=== PATIENT | male | born 1940 | race Caucasian/White ===

== ENCOUNTER 2017-05-28 07:09 | Inpatient (IN) | payer OTHER, MEDICARE ==
[~2017-05-28] VITALS: Ht 172.7 cm; Wt 105.7 kg
[~2017-05-28 07:09] MED LIST: ACCUNEB SO1.25 MG/1 INH; AVODART0.5 MG PO; BYSTOLIC 5 MG5 M1 PO; CARDIZEM CD180 MG PO; CELEBREX 200 M200 M1 PO; FLECAINIDE ACET50 M1 PO; FLOMAX0.4 MG PO; SINEMET 25-1001 EAC1 PO; TEGRETOL XR400 MG PO; XARELTO20 MG PO
[2017-05-28 07:13] VITALS: BP 116/77
[2017-05-28 07:45] LABS: ANION GAP 6 mmol/L (7-16); BUN 18 mg/dL (7-18); CALCIUM 8.6 mg/dL (8.5-10.1); CHLORIDE 104 mmol/L (98-107); CO2 29 mmol/L (21-32); GLUCOSE 112 mg/dL (70-99); POTASSIUM 4.2 mmol/L (3.5-5.1); SODIUM 139 mmol/L (136-145)
[2017-05-28 07:50] LABS: APTT 35.5 Seconds (25.0-31.3); INR 1.3; MCH 33.5 pg (26.0-34.0); MPV 7.9 fl. (7.2-11.1); NUCLEATED RBCS 0 /100WBC; PROTIME 13.1 Seconds (9.20-11.50); WBC 10.4 thou/uL (4.0-11.0)
[2017-05-28 07:52] LABS: ABSOLUTE BASOPHILS 0.1 thou/uL (0.0-0.2); ABSOLUTE EOSINOPHILS 0.2 thou/uL (0.0-0.7); ABSOLUTE LYMPHOCYTES 1.8 thou/uL (0.8-5.3); ABSOLUTE MONOCYTES 0.9 thou/uL (0.0-1.2); ABSOLUTE NEUTROPHILS 7.5 thou/uL (1.6-8.1); BASOPHILS 0.7 %; EOSINOPHILS 1.6 %; HEMATOCRIT 42.3 % (42.0-52.0); HEMOGLOBIN 14.2 gm/dL (14.0-18.0); LYMPHOCYTES 17.2 %; MCHC 33.7 g/dL (28.0-37.0); MCV 99.6 fL (80.0-100.0); MONOCYTES 8.7 %; PLATELET COUNT* 182 thou/uL (150-400); POLYS 71.8 %; RBC 4.25 mil/uL (4.50-6.00); RDW-CV 13.8 % (10.5-14.5)
[2017-05-28 07:53] LABS: BE -3.1 mmol/L (-2 to +3); HCO3 20.9 mmol/L (22.0-26.0); PCO2 34.6 mmHg (35.0-45.0); PO2 72.4 mmHg (75.0-100.0); pH 7.399 (7.340-7.450)
[2017-05-28 07:55] LABS: ALBUMIN 3.6 g/dL (3.4-5.0); ALKALINE PHOSPHATASE 79 U/L (46-116); NT-PRO BRAIN NAT PEPTIDE 185 pg/mL (<300); SGOT 28 U/L (15-37); SGPT 17 U/L (30-65); TOTAL BILIRUBIN 0.5 mg/dL (<0.1-1.0); TOTAL PROTEIN 6.5 g/dL (6.4-8.2); TROPONIN-I LEVEL <0.06 ng/mL (<0.06)
[2017-05-28 09:37] VITALS: BP 105/68
[2017-05-28 10:00] VITALS: BP 118/73
[2017-05-28 11:59] VITALS: BP 118/66
--- NOTE | 2017-05-28 13:21 | EKG ---
[place] [address] ELECTROCARDIOGRAM REPORT Name: NIMESH BRAUN Room: [facility] ADM IN M.R.#: [id number] Admission: 05/28/17 Attend Phys: Benjamin Guzman MD Discharge: Date of : 40 Report #: [id number] THIS REPORT FOR: //name// [facility] ED Test Date: 2017-05-28 Test Time: 07:19:53 Pat Name: NIMESH BRAUN Department: Room: [facility] Gender: M Painter: [facility] : 1940 Requested By: Zahraa Le Order Number: [id number] MD: Roman Josue Measurements Intervals [place] Rate: 73 P: -38 OR: 347 QRS: 50 QRSD: 105 T: 37 QT: 367 QTc: 405 Interpretive Statements Sinus rhythm Prolonged [place] interval Borderline low voltage, extremity leads Compared to ECG 09/26/2005 07:25:46 No significant changes Electronically Signed On 05-28-2017 13:20:58 DINING CAR WAITER/WAITRESS by Roman Josue [email or web address] <ELECTRONICALLY SIGNED> By: Roman Josue MD, [facility] 05/28/17 1320 8 8 Roman Josue MD, [facility] /EPI
[2017-05-28 16:12] VITALS: BP 119/70
[2017-05-28 20:00] VITALS: BP 118/58
[2017-05-29 00:06] VITALS: BP 108/65
[2017-05-29 03:41] VITALS: BP 110/66
[2017-05-29 06:23] LABS: HEMATOCRIT 40.6 % (42.0-52.0); HEMOGLOBIN 13.5 gm/dL (14.0-18.0); MCH 33.3 pg (26.0-34.0); MCHC 33.1 g/dL (28.0-37.0); MCV 100.5 fL (80.0-100.0); MPV 7.9 fl. (7.2-11.1); NUCLEATED RBCS 0 /100WBC; PLATELET COUNT* 180 thou/uL (150-400); RBC 4.04 mil/uL (4.50-6.00); RDW-CV 13.8 % (10.5-14.5); WBC 10.9 thou/uL (4.0-11.0)
[2017-05-29 06:39] LABS: CREATININE 1.1 mg/dL (0.6-1.3); POTASSIUM 4.1 mmol/L (3.5-5.1)
[2017-05-29 07:33] LABS: ABSOLUTE LYMPHOCYTES 0.8 thou/uL (0.8-5.3); ABSOLUTE MONOCYTES 0.7 thou/uL (0.0-1.2); ABSOLUTE NEUTROPHILS 9.5 thou/uL (1.6-8.1); PLATELET ESTIMATE ADEQUATE
[2017-05-29 08:00] VITALS: BP 120/78
--- NOTE | 2017-05-29 09:08 | CON ---
[address] [address] CONSULTATION Name: NIMESH BRAUN Room: [place] [address] ADM IN M.R.#: [id number] Admission: 05/28/17 Attend Phys: Benjamin Guzman MD Discharge: Date of : 40 Report #: [id number] THIS REPORT FOR: //name// CC: Benjamin Ledesma INDICATION: Acute shortness of breath and possible heart failure. HISTORY OF PRESENT ILLNESS: The patient is a very pleasant 76-year-old who underwent direct current cardioversion last week to normal sinus rhythm. He presently is maintaining sinus rhythm. Post-cardioversion, he had some left lower posterior chest pain described as "something out of place." This pain apparently became quite severe over the next several days. Associated with this, he had significant shortness of breath. The patient presented to the Emergency Room early this morning when he felt that he could not go on become of his shortness of breath. His O2 saturations were noted to be in the mid 80s. Chest x-ray suggested pulmonary vascular congestion. His NT-proBNP, however, was normal. He was admitted with the presumptive diagnosis of acute heart failure. He did receive some diuretics in the Emergency Room as well as supplemental oxygen. With this, his shortness of breath is significantly improved. His discomfort has improved significantly as well. At the time of my interview, he appeared comfortable and without significant complaint, although his respiratory rate was still elevated. PAST MEDICAL HISTORY: 1. Paroxysmal atrial fibrillation. 2. DC cardioversion last week. 3. Chronic obstructive pulmonary disease. 4. Hypertension. 5. Remote history of pneumonia. HOME MEDICATIONS: Albuterol q. 6 hours p.r.n., Tegretol XR 400 mg b.i.d., Sinemet 25/100 two tablets b.i.d., Celebrex 200 mg daily, diltiazem 180 mg daily, Avodart 0.5 mg daily, Bystolic 5 mg daily, Flomax 0.4 mg b.i.d., flecainide 100 mg b.i.d., Xarelto 20 mg q. day. ALLERGIES: None documented. FAMILY HISTORY: Noncontributory. SOCIAL HISTORY: The patient does not smoke. He does not drink alcohol. PHYSICAL EXAMINATION: VITAL SIGNS: Blood pressure 118/66, pulse 71 and regular. GENERAL: This is a pleasant gentleman who does not appear to be in distress. Mood and affect appropriate. HEENT: The patient is wearing glasses. [place] [address] CONSULTATION Name: NIMESH BRAUN Room: [address]#: [id number] Admission: 05/28/17 Attend Phys: Benjamin Guzman MD Discharge: Date of : 40 Report #: [id number] membranes are moist. NECK: Shows no jugular venous distention. There are no carotid bruits. CHEST: Reveals diminished breath sounds without wheezes or rales. CARDIAC: Reveals a regular rhythm with normal S1 and S2. I do not appreciate gallop or murmur. ABDOMEN: Reveals normal bowel sounds. The abdomen is soft and nontender. EXTREMITIES: Trace edema. SKIN: Warm and dry. LABORATORY DATA: A 12-lead EKG shows normal sinus rhythm with first-degree AV block. No acute ST or T-wave abnormalities noted. CTA of the chest shows no evidence of pulmonary embolus with bilateral diffuse interstitial pulmonary infiltrates. Chest x-ray shows most suggestive of CHF with interstitial pulmonary edema. Labs are reviewed. Sodium 139, potassium 4.2, chloride 104, bicarbonate 29, BUN 18, creatinine 1.0, serum glucose 112. LFTs within normal limits. Troponin less than 0.04. NT-proBNP 185, D-dimer 0.95. White blood cell count 10.4, platelet count 182,000. Hemoglobin 14.2. IMPRESSION AND RECOMMENDATIONS: 1. History of atrial arrhythmia, status post cardioversion. The patient maintaining sinus rhythm on combination of diltiazem and flecainide. He is chronically anticoagulated with Xarelto. Continue as outlined above. 2. Hypoxia, etiology not clear. Suspect some form of interstitial infiltrate. With the patient's NT-proBNP being normal, this makes congestive heart failure somewhat less likely. I would be concerned about some form of infectious infiltrate. We will follow serial EKGs. Remote possibility could be alveolar hemorrhage. At this point, we will continue Xarelto and recommend followup chest x-rays. 3. Hypertension, adequately controlled on current regimen. <ELECTRONICALLY SIGNED> By: Roman Josue MD, FACC 05/29/17 0908 1241 [id number] Josue MD, FACC /nt
[2017-05-29 11:14] LABS: CALCIUM 8.9 mg/dL (8.5-10.1); CREATININE 1.3 mg/dL (0.6-1.3); POTASSIUM 3.8 mmol/L (3.5-5.1)
[2017-05-29 12:18] VITALS: BP 107/62
[2017-05-29 17:25] VITALS: BP 115/68
[2017-05-29 20:00] VITALS: BP 114/67
[2017-05-30] VITALS: BP 110/62
[2017-05-30 04:49] VITALS: BP 105/62
[2017-05-30 05:24] LABS: ABSOLUTE EOSINOPHILS 0.1 thou/uL (0.0-0.7); ABSOLUTE MONOCYTES 1.1 thou/uL (0.0-1.2); ABSOLUTE NEUTROPHILS 8.6 thou/uL (1.6-8.1); BASOPHILS 0.2 %; EOSINOPHILS 0.6 %; HEMATOCRIT 38.6 % (42.0-52.0); HEMOGLOBIN 12.8 gm/dL (14.0-18.0); LYMPHOCYTES 17.3 %; MCH 33.2 pg (26.0-34.0); MCV 100.4 fL (80.0-100.0); MONOCYTES 9.5 %; MPV 7.6 fl. (7.2-11.1); NUCLEATED RBCS 0 /100WBC; PLATELET COUNT* 181 thou/uL (150-400); POLYS 72.4 %; RBC 3.84 mil/uL (4.50-6.00); RDW-CV 14.1 % (10.5-14.5); WBC 11.8 thou/uL (4.0-11.0)
[2017-05-30 05:46] LABS: ALBUMIN 3.3 g/dL (3.4-5.0); CALCIUM 8.7 mg/dL (8.5-10.1); CREATININE 1.1 mg/dL (0.6-1.3); POTASSIUM 3.3 mmol/L (3.5-5.1); TOTAL BILIRUBIN 0.3 mg/dL (<0.1-1.0); TOTAL PROTEIN 6.3 g/dL (6.4-8.2)
[2017-05-30 09:00] VITALS: BP 126/85
[2017-05-30 11:30] VITALS: BP 107/61
[2017-05-30 15:30] VITALS: BP 113/75
--- NOTE | 2017-05-30 15:48 | EKG ---
[place] [address] ELECTROCARDIOGRAM REPORT Name: NIMESH BRAUN Room: [place] [address] ADM IN M.R.#: [id number] Admission: 05/28/17 Attend Phys: Benjamin Guzman MD Discharge: Date of : 40 Report #: [id number] THIS REPORT FOR: //name// [facility] Test Date: 2017-05-30 Test Time: 13:27:01 Pat Name: NIMESH BRAUN Department: Room: [place] [address] Gender: M Academic Affairs Assistant: : 1940 Requested By: Benjamin Guzman Order Number: [id number] Rex MD: Roman Josue Measurements Intervals [place] Rate: 100 P: WI: QRS: -16 QRSD: 93 T: 48 QT: 363 QTc: 469 Interpretive Statements Atrial flutter with predominant 3:1 AV block Borderline left axis deviation Borderline low voltage, extremity leads Compared to ECG 05/28/2017 07:19:53 AV block, advanced (high-grade) now present Sinus rhythm no longer present First degree AV block no longer present Electronically Signed On 05-30-2017 15:48:33 SCADA ENGINEER by Roman Josue [email or web address] <ELECTRONICALLY SIGNED> By: Roman Josue MD, FACC 05/30/17 1548 1327 1327 Roman Josue MD, FACC /EPI
--- NOTE | 2017-05-30 15:52 | 2DMMODE ---
[place] [address] 2 D/M-MODE ECHOCARDIOGRAM Name: NIMESH BRAUN Room: [facility] ADM IN [facility]#: [id number] Admission: 05/28/17 Attend Phys: Benjamin Guzman, Discharge: Date of : 40 Date of Service: 05/30/17 1552 Report #: [id number] THIS REPORT FOR: //name// APPROVED REPORT Study performed: 05/30/2017 14:52:16 EXAM: Comprehensive 2D, Doppler, and color-flow Echocardiogram Patient Location: In-Patient Room #: [facility] Status: routine BSA: 2.21 HR: 96 bpm BP: 126/85 mmHg Rhythm: Atrial Fibrillation Other Information Study Quality: Good Indications Atrial Fibrillation Dyspnea 2D Dimensions LVEF(%): 81.75 (>50%) IVSd: 14.00 (7-11mm) LVOT Diam: 20.39 (18-24mm) LVDd: 41.49 mm PWd: 12.24 (7-11mm) Ascending Ao: 36.78 (22-36mm) LVDs: 20.73 (25-40mm) Aortic Root: 39.24 mm Martin's LVEF: 81.75 % Volumes Left Atrial Volume (Systole) LA ESV Index: 21.10 mL/m2 Aortic Valve AoV Peak Omar.: 1.10 m/s AO Peak Gr.: 4.84 mmHg LVOT Max P.67 mmHg AO Mean Gr.: 3.19 mmHg LVOT Mean P.39 mmHg LVOT Max V: 1.08 m/s AO V2 VTI: 16.13 cm LVOT Mean V: 0.71 m/s MIKE (VTI): 3.65 cm2 LVOT V1 VTI: 18.05 [place] [address] 2 D/M-MODE ECHOCARDIOGRAM Name: NIMESH BRAUN Room: [address] IN ..#: [id number] Admission: 05/28/17 Attend Phys: Benjamin Guzman, Discharge: Date of : 40 Date of Service: 05/30/17 1552 Report #: [id number] MV Decel. Time: 126.13 ms MV PHT: 36.58 ms MVA (PHT): 6.01 cm2 Pulmonary Valve PV Peak Omar.: 1.04 m/s PV Peak Gr.: 4.32 mmHg Tricuspid Valve TR Peak Gr.: 27.47 mmHg RVSP: 32.00 mmHg Left Ventricle The left ventricle is normal size. There is normal LV segmental wall motion. Mild concentric left ventricular hypertrophy. Left ventricular systolic function is normal. LVEF is 60-65%. This study is not technically sufficient to allow evaluation of the LV diastolic function due to atrial fibrillation. Right Ventricle The right ventricle is normal size. The right ventricular systolic function is normal. Atria The left atrium size is normal. The right atrium size is normal. Aortic Valve The aortic valve is normal in structure. No aortic regurgitation is present. There is no aortic valvular stenosis. Mitral Valve The mitral valve is normal in structure. Mild to moderate mitral regurgitation. No evidence of mitral valve stenosis. Tricuspid Valve The tricuspid valve is normal in structure. Trace tricuspid regurgitation. The RVSP is 30-35 mmHg. Pulmonic Valve The pulmonary valve is normal in structure. Trace pulmonic regurgitation. Great Vessels The aortic root is normal in size. IVC is normal in size and collapses with >50% [place] [address] 2 D/M-MODE ECHOCARDIOGRAM Name: BRAUNNIMESH Room: [address] IN [facility]#: [id number] Admission: 05/28/17 Attend Phys: Benjamin Guzman, Discharge: Date of : 40 Date of Service: 05/30/17 1552 Report #: [id number] There is no pericardial effusion. <Conclusion> The left ventricle is normal size. Mild concentric left ventricular hypertrophy. Left ventricular systolic function is normal. LVEF is 60-65%. Mild to moderate mitral regurgitation. Trace tricuspid regurgitation. The RVSP is 30-35 mmHg. <ELECTRONICALLY SIGNED> By: Roman Josue MD, FACC 05/30/171551 51 51 Roman Josue MD, FACC /INF
[2017-05-30 20:21] VITALS: BP 107/69
[2017-05-31] VITALS (12 sets, daily range): BP systolic 93–123; BP diastolic 57–75
[2017-05-31 04:53] LABS: ABSOLUTE EOSINOPHILS 0.2 thou/uL (0.0-0.7); ABSOLUTE LYMPHOCYTES 2.6 thou/uL (0.8-5.3); ABSOLUTE NEUTROPHILS 5.5 thou/uL (1.6-8.1); BASOPHILS 0.5 %; EOSINOPHILS 2.5 %; HEMATOCRIT 43.2 % (42.0-52.0); HEMOGLOBIN 14.4 gm/dL (14.0-18.0); LYMPHOCYTES 27.6 %; MCH 33.4 pg (26.0-34.0); MCHC 33.4 g/dL (28.0-37.0); MONOCYTES 10.7 %; MPV 7.7 fl. (7.2-11.1); NUCLEATED RBCS 0 /100WBC; PLATELET COUNT* 204 thou/uL (150-400); POLYS 58.7 %; RBC 4.32 mil/uL (4.50-6.00); RDW-CV 13.8 % (10.5-14.5); WBC 9.5 thou/uL (4.0-11.0)
[2017-05-31 05:11] LABS: CALCIUM 8.7 mg/dL (8.5-10.1); CREATININE 1.2 mg/dL (0.6-1.3); MAGNESIUM 1.8 mg/dL (1.8-2.4); POTASSIUM 3.9 mmol/L (3.5-5.1)
[2017-05-31] MEDS ORDERED: FLECAINIDE ACET50 M1 PO (12:20)
[2017-05-31] MEDS ORDERED: DUONEB 2.5-0.5 M3 ML INH (17:18)
[2017-05-31] MEDS ORDERED: POTASSIUM20 PO (17:18)
[2017-05-31] MEDS ORDERED: LASIX 40 MG TAB40 M1 PO (17:18)
[2017-05-31] MEDS ORDERED: BYSTOLIC10 MG PO (17:18)
[2017-06-01 03:33] VITALS: BP 105/67
[2017-06-01 07:47] VITALS: BP 105/67
[2017-06-01 08:00] VITALS: BP 107/78
[2017-06-01 12:03] VITALS: BP 128/111
--- NOTE | 2017-06-01 13:04 | EKG ---
[place] [address] ELECTROCARDIOGRAM REPORT Name: NIMESH BRAUN Room: [place] [address] ADM IN .R.#: [id number] Admission: 05/28/17 Attend Phys: Benjamin Guzman MD Discharge: Date of : 40 Report #: [id number] THIS REPORT FOR: //name// [facility] Test Date: 2017-05-31 Test Time: 12:28:08 Pat Name: NIMESH BRAUN Department: Room: [place] [address] Gender: M Barometers Calibrator: [facility] : 1940 Requested By: Roman Josue Order Number: [id number] Rex MD: Bart Espinoza Measurements Intervals [place] Rate: 68 P: 2 RI: 286 QRS: -16 QRSD: 106 T: 30 QT: 395 QTc: 421 Interpretive Statements Sinus rhythm Prolonged RI interval Borderline left axis deviation Compared to ECG 05/30/2017 13:27:01 Atrial flutter no longer present Electronically Signed On 06-01-2017 13:03:50 LAMINATION MACHINE OPERATOR by Bart Espinoza [email or web address] <ELECTRONICALLY SIGNED> By: Bart Espinoza MD, [facility] 06/01/17 1303 1228 122 Bart Espinoza MD, [facility] /EPI
[2017-06-01] MEDS ORDERED: PREDNISONE 10 M10 MG PO (14:32)
--- NOTE | 2017-06-15 17:12 | CARD ---
[address] [address] CARDIAC CATH REPORT Name: NIMESH BRAUN Room: [address] IN M.R.#: [id number] Admission: 05/28/17 Attend Phys: Benjamin Guzman MD Discharge: 06/01/17 Date of : 40 Report #: [id number] THIS REPORT FOR: //name// CC: Benjamin Ledesma PROCEDURE: DC cardioversion. INDICATION: Persistent atrial flutter. PROCEDURE DESCRIPTION: After informed consent was obtained, the patient was brought to the cardiac holding area. The patient was given intravenous Versed and fentanyl for conscious sedation. Once the patient was adequately sedated, he was cardioverted with a single biphasic shock of 300 joules to normal sinus rhythm. The patient tolerated the procedure well and without complication. He was recovered in usual fashion and returned to his room. IMPRESSION: 1. Persistent atrial flutter. 2. Successful direct current cardioversion to normal sinus rhythm. <ELECTRONICALLY SIGNED> By: Roman Josue MD, FACC 06/15/17 1712 1544 1817Roman Josue MD, FACC /nt
== END 2017-06-01 14:58 | disposition home or self-care (01) | DRG 291 ==
LOC: M.ERS 07:09 → M.TBA-ER 08:45 → M.2W 08:45
PROVIDERS: Emergency Medicine; Family Medicine; Internal Medicine Cardiovascular Disease; ADMIT Internal Medicine
DX: I11.0 Hypertensive heart disease with heart failure (principal); J96.01 Acute respiratory failure with hypoxia; J18.9 Pneumonia, unspecified organism; S22.39XA Fracture of one rib, unspecified side, initial encounter for closed fracture; J44.1 Chronic obstructive pulmonary disease with (acute) exacerbation; J44.0 Chronic obstructive pulmonary disease with (acute) lower respiratory infection; I50.31 Acute diastolic (congestive) heart failure; I48.0 Paroxysmal atrial fibrillation; G47.30 Sleep apnea, unspecified; Z87.891 Personal history of nicotine dependence; Z79.899 Other long term (current) drug therapy; Z87.01 Personal history of pneumonia (recurrent); Z79.01 Long term (current) use of anticoagulants; X58.XXXA Exposure to other specified factors, initial encounter; Y93.89 Activity, other specified; Y92.89 Other specified places as the place of occurrence of the external cause; Y99.8 Other external cause status

== ENCOUNTER 2017-10-16 02:41 | Inpatient (IN) | payer OTHER ==
[2017-10-16] VITALS (13 sets, daily range): BP systolic 117–150; BP diastolic 57–84
[~2017-10-16] VITALS: Ht 172.7 cm; Wt 108.0 kg
[~2017-10-16 02:41] MED LIST changes: +BYSTOLIC10 MG PO; +DUONEB 2.5-0.5 M3 ML INH; +LASIX 40 MG TAB40 M1 PO; +POTASSIUM20 PO; +PREDNISONE 10 M10 MG PO
[2017-10-16 03:18] LABS: ABSOLUTE EOSINOPHILS 0.2 thou/uL (0.0-0.7); ABSOLUTE LYMPHOCYTES 1.5 thou/uL (0.8-5.3); ABSOLUTE MONOCYTES 1.3 thou/uL (0.0-1.2); ABSOLUTE NEUTROPHILS 6.3 thou/uL (1.6-8.1); BASOPHILS 0.5 %; EOSINOPHILS 1.7 %; HEMATOCRIT 41.5 % (42.0-52.0); HEMOGLOBIN 13.9 gm/dL (14.0-18.0); LYMPHOCYTES 15.9 %; MCH 32.6 pg (26.0-34.0); MCHC 33.5 g/dL (28.0-37.0); MCV 97.3 fL (80.0-100.0); MONOCYTES 13.7 %; MPV 7.5 fl. (7.2-11.1); NUCLEATED RBCS 0 /100WBC; PLATELET COUNT* 172 thou/uL (150-400); POLYS 68.2 %; RBC 4.26 mil/uL (4.50-6.00); RDW-CV 13.4 % (10.5-14.5); WBC 9.3 thou/uL (4.0-11.0)
[2017-10-16 03:22] LABS: BE 1.7 mmol/L (-2 to +3); HCO3 26.3 mmol/L (22.0-26.0); PCO2 41.1 mmHg (35.0-45.0); PO2 75.6 mmHg (75.0-100.0); pH 7.424 (7.340-7.450)
[2017-10-16 03:28] LABS: APTT 34.7 Seconds (25.0-31.3); INR 1.2; PROTIME 11.3 Seconds (9.20-11.50)
[2017-10-16 03:42] LABS: ALBUMIN 3.2 g/dL (3.4-5.0); ALKALINE PHOSPHATASE 81 U/L (46-116); ANION GAP 6 mmol/L (7-16); CALCIUM 8.8 mg/dL (8.5-10.1); CHLORIDE 101 mmol/L (98-107); CO2 31 mmol/L (21-32); CREATININE 1.1 mg/dL (0.6-1.3); GLUCOSE 101 mg/dL (70-99); MAGNESIUM 1.7 mg/dL (1.8-2.4); PHOSPHORUS* 2.9 mg/dL (2.5-4.9); POTASSIUM 4.4 mmol/L (3.5-5.1); SGOT 19 U/L (15-37); SGPT 6 U/L (30-65); SODIUM 138 mmol/L (136-145); TOTAL BILIRUBIN 0.5 mg/dL (<0.1-1.0); TOTAL PROTEIN 7.2 g/dL (6.4-8.2); TROPONIN-I LEVEL <0.06 ng/mL (<0.06)
[2017-10-16 03:53] LABS: BUN 18 mg/dL (7-18)
[2017-10-16 04:47] LABS: URINE BILIRUBIN NEGATIVE (Negative); URINE BLOOD NEGATIVE (Negative); URINE CLARITY CLEAR; URINE COLOR YELLOW; URINE GLUCOSE-RANDOM NEGATIVE (Negative); URINE KETONES TRACE (Negative); URINE LEUKOCYTES-REFLEX NEGATIVE (Negative); URINE NITRITE-REFLEX NEGATIVE (Negative); URINE PROTEIN NEGATIVE (Negative); URINE UROBILINOGEN 0.2 E.U./dl (0.2-1.0)
--- NOTE | 2017-10-16 05:05 | NUR ---
ACTUAL TIME OF DISCHARGE 0505.
--- NOTE | 2017-10-16 07:13 | NUR ---
Pt arrived to ICU from ED at 0515. Presented to ED with back pain, rated 10/10. Pain on arrival to ICU 4/10, received morphine in ED. Heparin gtt infusing. SCDs placed. On 3L O2. VSS. NPO except meds. Voiding per urinal. T 103.8 upon arrival to ED. Received Tylenol in ED, and T down to 100 immediately prior to transfer to ICU. at bedside. Will continue to monitor.
--- NOTE | 2017-10-16 07:25 | NUR ---
ASSUMED CARE OF PATIENT AFTER RECEIVING BEDSIDE REPORT. ASSESSMENT COMPLETED, VSS. PATIENT DENIES CHEST PAIN AT THIS TIME. PATIENT RESTING COMFORTABLY IN BED REQUESTING FOOD. PATIENT'S AT BEDSIDE. SIGNAL MAINTENANCE TECHNICIAN IN PLACE, SINUS RHYTHM WITH FIRST DEGREE AV BLOCK NOTED. CALL LIGHT WITHIN REACH, USE REINFORCED. PATIENT AFEBRILE AT THIS TIME. WILL CONTINUE TO MONITOR.
[2017-10-16 08:34] LABS: CHOLESTEROL 163 mg/dL (<200); HDL CHOLESTEROL 62 mg/dL (>40); LDL CHOLESTEROL 86 mg/dL (<100); TC:HDL 2.6 Ratio (Not establshd); TRIGLYCERIDE 79 mg/dL (<150); VLDL 16 mg/dL (<40)
[2017-10-16 08:43] LABS: SERUM ASSESSMENT Clear
--- NOTE | 2017-10-16 10:21 | EKG ---
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 [employer]: : 1940 Requested By: Pamella Persaud Order Number: [id number] MD: Bart Espinoza Measurements Intervals [place] Rate: 81 P: 104 [place]: 317 QRS: 74 QRSD: 123 T: -20 QT: 358 QTc: 416 Interpretive Statements Sinus rhythm Prolonged [place] interval Nonspecific intraventricular conduction delay nonspecific st changes Compared to ECG 05/31/2017 12:28:08 Intraventricular conduction delay now present ST (T wave) deviation now present Electronically Signed On 10-16-2017 10:20:50 CDT by Bart Espinoza [email or web address] <ELECTRONICALLY SIGNED> By: Bart Espinoza MD, [facility] 10/16/17 1020 0321 0321 Bart Espinoza MD, [facility] /EPI
--- NOTE | 2017-10-16 10:22 | EKG ---
[place] [address] ELECTROCARDIOGRAM REPORT Name: NIMESH BRAUN Room: [address] ADM IN M.R.#: [id number] Admission: 10/16/17 Attend Phys: Maximo Tijerina Discharge: Date of : 40 Report #: [id number] THIS REPORT FOR: //name// [facility] ED Test Date: 2017-10-16 Test Time: 03:52:13 Pat Name: NIMESH BRAUN Department: Room: [address] Gender: M Resident Caregiver: rob user : 1940 Requested By: Pamella Persaud Order Number: [id number] Rex MD: Bart Espinoza Measurements Intervals [place] Rate: 81 P: 124 [place]: 306 QRS: 51 QRSD: 121 T: -30 QT: 350 QTc: 407 Interpretive Statements Sinus rhythm Prolonged [place] interval Nonspecific intraventricular conduction delay nonspecific st changes Baseline wander in lead(s) II,III,aVR,aVF Electronically Signed On 10-16-2017 10:21:50 CDT by Bart Espinoza [email or web address] <ELECTRONICALLY SIGNED> By: Bart Espinoza MD, [facility] 10/16/17 1021 0352 0352 Bart Espinoza MD, [facility] /EPI
--- NOTE | 2017-10-16 18:40 | NUR ---
PATIENT DETERIORATED THROUGHOUT SHIFT. NEW LABS DRAWN. DR. BLANC NOTIFIED. ONE-TO-ONE ORDER OBTAINED IF NEEDED. PATIENT FEBRILE THIS EVENING. PATIENT MUCH MORE CONFUSED THIS EVENING. PATIENT IMPULSIVE, GETTING OUT OF BED, BEING SOMEWHAT AGGRESSIVE. BEDSIDE REPORT TO BE GIVEN TO ONCOMING SHIFT.
[2017-10-16 19:01] LABS: HEMATOCRIT 39.2 % (42.0-52.0); HEMOGLOBIN 13.2 gm/dL (14.0-18.0); MCH 32.6 pg (26.0-34.0); MCHC 33.6 g/dL (28.0-37.0); MCV 96.9 fL (80.0-100.0); MPV 7.4 fl. (7.2-11.1); RBC 4.05 mil/uL (4.50-6.00); RDW-CV 13.1 % (10.5-14.5); WBC 7.9 thou/uL (4.0-11.0)
[2017-10-16 19:09] LABS: CALCIUM 8.7 mg/dL (8.5-10.1); POTASSIUM 4.3 mmol/L (3.5-5.1)
[2017-10-16 20:53] LABS: BE 0.1 mmol/L (-2 to +3); HCO3 25.4 mmol/L (22.0-26.0); PCO2 43.9 mmHg (35.0-45.0); PO2 88.3 mmHg (75.0-100.0); pH 7.381 (7.340-7.450)
[2017-10-17] VITALS (7 sets, daily range): BP systolic 115–152; BP diastolic 68–79
[2017-10-17 03:07] LABS: ABSOLUTE BASOPHILS 0.1 thou/uL (0.0-0.2); ABSOLUTE EOSINOPHILS 0.1 thou/uL (0.0-0.7); ABSOLUTE LYMPHOCYTES 1.3 thou/uL (0.8-5.3); ABSOLUTE MONOCYTES 1.1 thou/uL (0.0-1.2); ABSOLUTE NEUTROPHILS 5.6 thou/uL (1.6-8.1); BASOPHILS 0.8 %; EOSINOPHILS 1.5 %; HEMATOCRIT 38.6 % (42.0-52.0); HEMOGLOBIN 12.9 gm/dL (14.0-18.0); LYMPHOCYTES 16.2 %; MCH 32.6 pg (26.0-34.0); MCHC 33.4 g/dL (28.0-37.0); MCV 97.7 fL (80.0-100.0); MONOCYTES 13.6 %; MPV 7.6 fl. (7.2-11.1); NUCLEATED RBCS 0 /100WBC; PLATELET COUNT* 152 thou/uL (150-400); POLYS 67.9 %; RBC 3.95 mil/uL (4.50-6.00); RDW-CV 13.2 % (10.5-14.5); WBC 8.2 thou/uL (4.0-11.0)
[2017-10-17 03:39] LABS: ANION GAP 3 mmol/L (7-16); BUN 12 mg/dL (7-18); CALCIUM 8.8 mg/dL (8.5-10.1); CHLORIDE 106 mmol/L (98-107); CO2 31 mmol/L (21-32); GLUCOSE 95 mg/dL (70-99); POTASSIUM 4.3 mmol/L (3.5-5.1); SODIUM 140 mmol/L (136-145); TROPONIN-I LEVEL <0.06 ng/mL (<0.06)
--- NOTE | 2017-10-17 04:41 | NUR ---
PT CONTINUES ON O2 THERAPY AT 4L NC. PT SR W/ 1ST DEGREE AVB. PT CONTINUES WITH LOW GRADE TEMP LAST 99.5 ORAL. PT C/O OF BACK PAIN WITH MOVEMENT. REQUIRED ONE DOSE OF TYLENOL FOR PAIN. PT FREQUENT URINATION. PT CONTINUES WITH MAINTENANCE IVF.
--- NOTE | 2017-10-17 07:31 | NUR ---
ASSUMED CARE OF PATIENT AFTER RECEIVING BEDSIDE REPORT. PATIENT MUCH IMPROVED FROM PREVIOUS SHIFT. PATIENT ALERT AND ORIENTED, AFEBRILE THIS MORNING. PATIENT STILL SOMEWHAT IMPULSIVE. PATIENT REPORTS LESS PAIN THIS MORNING. HEATING PAD IN PLACE IN CONJUNCTION WITH TYLENOL. SUBSTATION SUPERINTENDENT IN PLACE, SINUS RHYTHM WITH A 1ST DEGREE AV BLOCK NOTED. BED ALARM ON. CALL LIGHT WITHIN REACH, USE REINFORCED. WILL CONTINUE TO MONITOR.
--- NOTE | 2017-10-17 08:08 | CON ---
[address] [address] CONSULTATION Name: BRAUNNIMESH Lara Room: [address] IN M.R.#: [id number] Admission: 10/16/17 Attend Phys: Maximo Tijerina Discharge: Date of : 40 Report #: [id number] THIS REPORT FOR: //name// CC: Ena Bran DATE OF SERVICE: 10/16/2017 INFECTIOUS DISEASE CONSULTATION ATTENDING PHYSICIAN: Benjamin Guzman MD. REASON FOR EVALUATION: Febrile illness with severe thoracic pain. HISTORY OF PRESENT ILLNESS: Chart reviewed, patient examined. This is a 77-year-old who has ongoing issues with chronic neck pain, led to his disability and fpc, who over the course of last 3 weeks had developed more mid back pain, was evaluated by Neurology, was referred to pain management, underwent epidural injection on 10/06/2017. It is not clear, but perhaps in retrospect had several evenings where he had chills, perhaps fevers. His temperature was not taken. It is difficult to ascertain if it was prior or after the injection, although in the time frame, worsened over the course of the last 12-24 hours, he had high fevers when evaluated overnight, was brought to the Emergency Room, was found to have 103 degrees. He was encephalopathic, complains with severe pain involving the mid back. He is lucid at this point. His temperature is down. He has not had a known exposure history, was given dose of vancomycin. Cultures are pending. ALLERGIES: None known. MEDICATIONS: Include vancomycin, Sinemet, carbamazepine, pantoprazole, flecainide, nebivolol, famotidine, hydralazine, docusate, morphine. PAST MEDICAL HISTORY: As described above, chronic back pain, history of COPD, atrial fibrillation with cardioversion, history of pneumonia. SOCIAL HISTORY: Former smoker. No ethanol. FAMILY HISTORY: Noncontributory. REVIEW OF SYSTEMS: As above. Denies pulmonary related complaints. No abdominal pain or nausea. PHYSICAL EXAMINATION: GENERAL: He is obese. He appears moderately distressed. It is difficult for him to move in the bed, particular related to his mid back[place] [address] CONSULTATION Name: NIMESH BRAUN Room: [address]#: [id number] Admission: 10/16/17 Attend Phys: Maximo Tijerina Discharge: Date of : 40 Report #: [id number] VITAL SIGNS: Temperature 98.7, pulse 65, respirations 25, blood pressure 134/77. SKIN: Warm, dry, no rashes. HEENT: Otherwise, unremarkable. NECK: Supple. LUNGS: Diminished, few scattered crackles. HEART: Regular. I do not appreciate a murmur. ABDOMEN: Obese, soft, nontender. BACK: There is no overt cellulitis or anything. It is not particularly painful along the spine or the perivertebral site to percussion or palpation. GENITOURINARY AND RECTAL: Deferred. LABORATORY DATA: MRI is pending. Chest x-ray: No acute process. Urinalysis is unremarkable. Lactic acid 1.2. Electrolytes: Sodium 138, potassium 4.4, chloride 101, bicarbonate is 31, anion gap of 6, BUN and creatinine 18 and 1.1. LFTs normal. Albumin 3.2, total protein 7.2. Estimated GFR 65. ABGs, pH 7.424, pCO2 of 41.1, pO2 of 75.6, is on 3 liters. CBC: White count of 9.3, H and H 13.9 and 41.5, platelets of 172. ASSESSMENT: Febrile illness with concomitant back pain in patient with recent epidural injection. Certainly that would be concerning. I agree with empiric antimicrobial therapy. We will follow up on blood cultures. Await results of the MRI study. At this point, I do not see any other focus of pyogenic infection. Certainly at risk if has persistent fevers. We need to consider vector borne versus a tick related. Consider adding tetracycline antibiotic. At this point, would follow expectantly. <ELECTRONICALLY SIGNED> By: Issac Nina MD 10/17/17 0808 1220 0111Jovaleria Nina MD /nt
--- NOTE | 2017-10-17 14:46 | NUR ---
1430 ASSUMED CARE OF PATIENT FROM [facility] AND AGREE WITH HER ASSESSMENT. PT IS UP TO CHAIR WITH OT AND BATHING. REMAINS ON OXYGEN AT 3LPM NASAL CANNULA.
--- NOTE | 2017-10-17 14:55 | EKG ---
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 : 1940 Requested By: Bart Espinoza Order Number: [id number] Rex MD: Roman Josue Measurements Intervals [place] Rate: 62 P: -15 [place]: 319 QRS: -9 QRSD: 107 T: 27 QT: 394 QTc: 400 Interpretive Statements Sinus rhythm Prolonged [place] interval Inferior infarct, old Compared to ECG 10/16/2017 03:52:13 Myocardial infarct finding now present Intraventricular conduction delay no longer present ST (T wave) deviation no longer present Electronically Signed On 10-17-2017 14:55:37 CDT by Roman Josue [email or web address] <ELECTRONICALLY SIGNED> By: Roman Josue MD, FAC 10/17/17 1455 0821 0821 Roman Josue MD, [facility] /EPI
--- NOTE | 2017-10-17 17:08 | NUR ---
PATIENT TO TRANSFER TO ROOM 211 AND PATIENT AND SPOUSE INFORMED OF MOVE. PT REMAINS IN CHAIR. REPORT TO BHARGAVI BECKER
--- NOTE | 2017-10-17 17:20 | NUR ---
PATIENT PROGRESSING TOWARDS GOALS. AFEBRILE,ORIENTED. UP TO CHAIR. EFFECTIVE PAIN CONTROL WITH PERCOCET. SURGERY SIGNED OFF. IR HAS NOT ROUNDED. PATIENT TO MOVE TO 211
--- NOTE | 2017-10-17 17:59 | NUR ---
PATIENT TRANSFERRED TO ROOM 211 WITH ALL RECORDS AND BELONGINGS
--- NOTE | 2017-10-17 18:30 | NUR ---
RECEIVED REPORT FROM [facility] IN ICU. PT TRANSFERED TO TELE FLOOR AROUND 1740. PT A&OX4. VSS, O2 SAT 97% ON 3L PER NC. CREATIVE WRITING TEACHER IN PLACE TRACING SR WITH A 1ST DEGREE. THIS RN AGREE'S WITH CHARTING AND ASSESSMENT DONE BY WILLOW BURK AND MIC BURK. IV TO RIGHT WRIST INTACT AND SALINE LOCKED. PT ABLE TO EAT DINNER WITHOUT ISSUE. PT USING URINAL TO VOID. PT STATES HIS BACK PAIN HAS BEEN MUCH RESOLVED WITH PO PAIN MEDICATION. PT CURRENRTLY SITTING UP IN BED. CALL LIGHT IS WITHIN REACH. FALL PRECAUTIONS IN PLACE. HOURLY ROUNDING PERFORMED.
[2017-10-18 00:29] VITALS: BP 162/87
[2017-10-18 03:35] VITALS: BP 180/87
[2017-10-18 04:58] LABS: ABSOLUTE BASOPHILS 0.1 thou/uL (0.0-0.2); ABSOLUTE EOSINOPHILS 0.2 thou/uL (0.0-0.7); ABSOLUTE LYMPHOCYTES 1.4 thou/uL (0.8-5.3); ABSOLUTE MONOCYTES 0.9 thou/uL (0.0-1.2); ABSOLUTE NEUTROPHILS 5.1 thou/uL (1.6-8.1); BASOPHILS 0.8 %; EOSINOPHILS 2.4 %; HEMATOCRIT 39.1 % (42.0-52.0); HEMOGLOBIN 13.1 gm/dL (14.0-18.0); LYMPHOCYTES 18.4 %; MCH 32.5 pg (26.0-34.0); MCHC 33.6 g/dL (28.0-37.0); MCV 96.7 fL (80.0-100.0); MONOCYTES 11.9 %; MPV 7.6 fl. (7.2-11.1); NUCLEATED RBCS 0 /100WBC; PLATELET COUNT* 174 thou/uL (150-400); POLYS 66.5 %; RBC 4.04 mil/uL (4.50-6.00); RDW-CV 13.2 % (10.5-14.5); WBC 7.7 thou/uL (4.0-11.0)
[2017-10-18 05:14] LABS: ALBUMIN 2.8 g/dL (3.4-5.0); CALCIUM 9.1 mg/dL (8.5-10.1); CREATININE 0.9 mg/dL (0.6-1.3); POTASSIUM 4.2 mmol/L (3.5-5.1); TOTAL BILIRUBIN 0.5 mg/dL (<0.1-1.0); TOTAL PROTEIN 6.8 g/dL (6.4-8.2)
--- NOTE | 2017-10-18 05:18 | NUR ---
PT CARE ASSUMED AFTER REPORT. ASSESSMENT COMPLETE. SR/1ST DEGREE ON MONITOR. PT UNCONTROLLED PAIN REPORTED TO DR ÁLVAREZ. MORPHINE FOR BREAK THROUGH PAIN. PRN PAIN MEDICATION GIVEN PER PT REQUEST. PT FORGETFUL AND CONFUSED AT TIMES. FALL PRECAUTIONS IN PLACE INCLUDING BED AND CHAIR ALARMS. CALL LIGHT IN REACH. BED IN LOWEST POSITION. SLOW TO PROGRESS TOWARDS GOALS.
[2017-10-18 08:06] VITALS: BP 152/79
[2017-10-18 12:03] VITALS: BP 146/77
--- NOTE | 2017-10-18 15:45 | NUR ---
Pt receiving breathing treatment, CM to f/u later
[2017-10-18 16:03] VITALS: BP 153/80
--- NOTE | 2017-10-18 18:25 | NUR ---
ASSUMED CARE OF PT AT 0710. PT CONTINUES TO BE A&O BUT FORGETFUL. PT C/O PAIN HAVE BEEN CONTROLLED WITH PRN PO AND IV PAIN MEDICATIONS TODAY. PT HAS HAD NO C/O SOA OR ANY OTHER DISTRESS. VSS ON ROOM AIR, CONTINUED IV ABT. PT HAS BEEN TRACING SR 1ST DEGREE AV BLOCK. IV IN PT RIGHT FOREARM INFILTRATED AND WAS REMOVED, NEW IV PLACED IN LEFT FOREARM, WITH ONE ATTEMPT. PT HAS A POOR APPETITE AND HAS BEEN EATING LESS THAN 50% OF HIS MEALS. PT CURRENTLY RESTING IN CHAIR AT BEDISDE WITH NEXT TO HIM. NURSING HAYLEY CONTINUE TO MONITOR
[2017-10-18 20:00] VITALS: BP 134/87
[2017-10-19] VITALS: BP 169/72
[2017-10-19 04:00] VITALS: BP 150/77
--- NOTE | 2017-10-19 05:35 | NUR ---
PT CARE ASSUMED AFTER REPORT. ASSESSMENT COMPLETE. SR ON MONITOR. PRN PAIN MEDICATION GIVEN PER PT REQUEST. PT IMPULSIVE AND CONFUSED AT TIMES. FALL PRECAUTIONS IN PLACE INCLUDING BED/CHAIR ALARMS. PT DOES NOT WAIT FOR ASSISTANCE AFTER HE PUTS THE CALL LIGHT ON. PT EDUCATED ON REASONS HE NEEDS TO WAIT FOR ASSISTANCE. VERBALIZED UNDERSTANDING BUT CONTINUES TO GET UP UNASSISTED. CALL LIGHT IN REACH. BED IN LOWEST POSITION. SLOW TO PROGRESS TOWARDS GOALS.
[2017-10-19 08:00] VITALS: BP 137/76
[2017-10-19 09:41] LABS: ABSOLUTE BASOPHILS 0.1 thou/uL (0.0-0.2); ABSOLUTE EOSINOPHILS 0.1 thou/uL (0.0-0.7); ABSOLUTE LYMPHOCYTES 1.2 thou/uL (0.8-5.3); ABSOLUTE MONOCYTES 1.1 thou/uL (0.0-1.2); ABSOLUTE NEUTROPHILS 6.3 thou/uL (1.6-8.1); BASOPHILS 0.7 %; EOSINOPHILS 1.1 %; HEMATOCRIT 41.1 % (42.0-52.0); HEMOGLOBIN 13.6 gm/dL (14.0-18.0); LYMPHOCYTES 13.4 %; MCH 32.3 pg (26.0-34.0); MCHC 33.1 g/dL (28.0-37.0); MCV 97.6 fL (80.0-100.0); MONOCYTES 12.7 %; MPV 8.2 fl. (7.2-11.1); NUCLEATED RBCS 0 /100WBC; PLATELET COUNT* 201 thou/uL (150-400); POLYS 72.1 %; RBC 4.21 mil/uL (4.50-6.00); RDW-CV 13.7 % (10.5-14.5); WBC 8.7 thou/uL (4.0-11.0)
[2017-10-19 09:46] LABS: CALCIUM 8.8 mg/dL (8.5-10.1); CREATININE 0.9 mg/dL (0.6-1.3); POTASSIUM 3.9 mmol/L (3.5-5.1)
[2017-10-19 12:06] VITALS: BP 133/79
--- NOTE | 2017-10-19 14:03 | NUR ---
Pt is A&O. Resides at home with his . Normally active and independent. Pt has a walker and cane at home, but does not currently need to use them. No hx of HH or SNF. Goal is to return home once medically stable. PT recommending HH at [place]. Following.
[2017-10-19 16:13] VITALS: BP 143/88
--- NOTE | 2017-10-19 18:40 | NUR ---
ASSUMED CARE 0F PT AT 0710 AFTER RECIEVING BEDSIDE REPORT FROM INFORMATION SYSTEMS SECURITY DEVELOPER NURSE. ASSESSMENT COMPLETED AND DOCUMENTED. VSS ON ROOM AIR AND PT HAS BEEN TRACING SR WITH A 1ST DEGREE AV BLOCK. PAIN MEDICATIONS ADMINSTERED PER PT REQUEST TO KEEP PAIN AT A TOLERABLE LEVEL. PT CONTINUES TO HAVE A POOR APPETITE AND HAS ATE LESS THAN 50% OF BREAKFAST AND DINNER AND DID NOT EAT ANY OF HIS LUNCH. PT DID BRING IN A TACO SALAD THAT THE PT ATE AROUND 50% OF THIS EVENING. HOURLY ROUNDING COMPLETED FOR COMFORT AND SAFTEY. NURSING WILL CONTINUE TO MONITOR.
[2017-10-19 20:00] VITALS: BP 141/94
[2017-10-20] VITALS: BP 144/77
[2017-10-20 04:00] VITALS: BP 152/72
--- NOTE | 2017-10-20 05:43 | NUR ---
PT CARE ASSUMED AFTER REPORT. ASSESSMENT COMPLETE. SR ON MONITOR. PRN PAIN MEDICATION GIVEN PER PT REQUEST. UP AD CAREY WITH STEADY GAIT. CALL LIGHT IN REACH. BED IN LOWEST POSITION. PROGRESSING TOWARDS GOALS.
[2017-10-20 07:30] VITALS: BP 164/75
--- NOTE | 2017-10-20 11:00 | NUR ---
RECEIVED CONSULT FOR POSSIBLE REHAB ADMISSION. CONSULT HAS BEEN ACKNOWLEDGED BY SSN/SSBN ASSISTANT NAVIGATOR AND DR. VACA. Pt WITH DX OF ENCEPHALOPATHY, FEVER, NECK AND BACK PAIN, TICK BITE. Pts INSURANCE IS OUT OF NETWORK WITH NO OUT OF NETWORK BENEFITS FOR THIS REHAB FACILITY. Pt IS SBA/CGA WITH THERAPIES MAY BENEFIT FROM SKILLED VS HH FOR CONTINUED STRENGTHENING. THANK YOU GOT HIS CONSULT.
[2017-10-20 13:50] VITALS: BP 156/87
--- NOTE | 2017-10-20 15:30 | NUR ---
CONSULTED TO PLACE PICC FOR CLIENT LEADER ATB THERAPY. SPOKE WITH PT REGUARDING RISK AND BENIFIT. CONSENT SIGNED AND ORDER NOTED ON CHART. RIGHT UPPER ARM ASSESSED WITH ULTRASOUND RIGHT BASILIC IDENTIFIED AND NOTED TO BE WIDLET PATENT. 4FR SINGLE LUMAN POWER PICC PLACED TO RIGHT BASILIC PER HOSPITAL PORTOCOL. LINE WAS TRIMMED PRIOR TO INSEERTION TO 49CM AND ADVANCED TO 47CM LEAVING 2CM EXTERNAL. TIP CONFIRMED WITH SHERLOCK 3CG. LINE SECURED AND RELEASED FOR IMMEDIATE USE. PRIMARY NURSING AWARE.
--- NOTE | 2017-10-20 16:10 | NUR ---
Pt will need IVABX at [place], faxed referral to [facility], waiting for call back with medication cost, anticipate that Pt will continue on Vanco TID. Updated Pt's and Pt, plan is for Pt to dc home with [facility] HH. Updated Mary at [facility] of referral, [place] orders to be faxed at [place] f:[phone]. Following.
[2017-10-20 17:39] VITALS: BP 150/89
--- NOTE | 2017-10-20 17:42 | CON ---
[address] [address] CONSULTATION Name: NIMESH BRAUN Room: [address] IN M.R.#: [id number] Admission: 10/16/17 Attend Phys: Maximo Tijerina Discharge: Date of : 40 Report #: [id number] THIS REPORT FOR: //name// CC: Dr. Srinivasan Bran DATE OF SERVICE: 10/16/2017 HISTORY OF PRESENT ILLNESS: The patient is a 77-year-old white male who I was asked to see in the hospital today after he complained of back pain. The patient initially presented last May with a cough. He was found to be in atrial fibrillation. He was seen in consultation by Dr. Josue and was cardioverted. He was then placed on Xarelto and flecainide. He required a second cardioversion when the atrial flutter returned. He has apparently done well since that time. The patient is not very active because of his age and large size. He is 5 feet 8 inches, 240 pounds. He does mow his yard. Recently, he has been having neck and back pain. He apparently had an epidural recently, went to the pain clinic. He apparently did see a neurologist. He then awakened last night with a pain in the middle of his back. He felt diaphoretic, confused and short of breath. His brought him to the emergency room and he was admitted. He was noted to have an abnormal ECG. I was asked to see him for further evaluation and treatment. He notes the back pain is worse when he moved from the stretcher to his bed. He denied any recent trauma, fall or heavy lifting. He does get short of breath with exertion, but has had no palpitations or bleeding. PAST MEDICAL HISTORY: Otherwise significant for bladder surgery, tonsillectomy, hyperlipidemia, and prostatism. No history of hypertension or diabetes. MEDICATIONS: Consists of Avodart, Bystolic, Celebrex, Flomax, Lasix as needed for edema, Sinemet, flecainide, Tegretol for tic delarue, and Xarelto. ALLERGIES: He has no known drug allergies. FAMILY HISTORY: Negative for heart disease. SOCIAL HISTORY: He is . He and his live here in [place]. 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 Quit smoking years ago. No alcohol abuse. REVIEW OF SYSTEMS: He does snore at night. No history of stroke, peptic ulcer disease, liver disease, kidney disease, cancer, psychiatric illness, chronic skin condition. PHYSICAL EXAMINATION: GENERAL: Revealed an elderly male, lying in bed, he [place] [address] CONSULTATION Name: NIMESH BRAUN Room: [address] IN [facility]#: [id number] Admission: 10/16/17 Attend Phys: Maximo Tijerina Discharge: Date of : 40 Report #: [id number] VITAL SIGNS: His blood pressure was 140/70, pulse is 70, temperature of 103 last night. HEENT: Mucous members are moist. He was anicteric. Conjunctivae are pink. NECK: Veins difficult to assess due to obesity. Neck was supple. CHEST: Clear to auscultation. HEART: Regular rate and rhythm. No significant murmur. ABDOMEN: Soft and nontender. EXTREMITIES: Had no edema. Posterior tibial pulse 3+ bilaterally. SKIN: Warm and dry. NEUROLOGIC: Nonfocal. LYMPH: No adenopathy. MUSCULOSKELETAL: No joint effusion. His ECG on admission showed a sinus rhythm, nonspecific ST and T-wave changes. His workup, he actually had an echocardiogram last May that showed left ventricular hypertrophy, ejection fraction 60%, mild mitral regurgitation. X-rays, he had a portable chest x-ray that showed cardiomegaly, clear lung malcolm. CT scan of the chest using a PE protocol last May revealed no pulmonary embolus. There was atelectasis. LAB WORK: Sodium 138, glucose 101. Liver function studies were normal. Troponin last night was 0.06. White blood cell count 9.3, hemoglobin 13.9. IMPRESSION AND RECOMMENDATIONS: 1. Back pain. Suspect musculoskeletal. Recommend no further cardiac evaluation. He apparently did have a stress test last winter, which I will review. 2. History of atrial fibrillation. No clinical recurrence, he is on flecainide. The patient has been chronically anticoagulated. 3. Chronic back pain. The patient had a recent epidural. 4. disease. 5. Prostatism. 6. History of tic delarue. The patient is on Tegretol. <ELECTRONICALLY SIGNED> By: Bart Espinoza MD, FACC 10/20/17 1742 0750 [id number] Paige Espinoza MD, FACC /nt
[2017-10-20 20:00] VITALS: BP 152/89
--- NOTE | 2017-10-20 20:05 | NUR ---
RECIEVED REPORT AND ASSUMED CARE AT 0730. VSS. CARDIAC MONITORING IN PLACE. ASSESSMENT COMPLETED CHARTED. PT UP WITH SBA IN ROOM, ON RA. DISCUSSED PLAN OF CARE WITH PT, VERBALIZED UNDERSTANDING. PT SCHEDULED FOR MRI THIS MORNING, COMPLETED. PT SCHEDULED FOR PLACEMENT OF PICC LINE, COMPLETED. PT TO CONTNUE IV ANTIBIOTICS, OUTPATIENT. CASE MANAGEMENT AWARE AND PT SET UP WITH HOME HEALTH AND PLANS FOR [facility] TO VISIT PT AND HIS 10/21 FOR TEACHING ON USED OF HOME ANTIBIOTIC ADMINISTRATION HERE AT THE HOSPITAL. PT POSSIBLE DISCHARGE 10/21. BED IN LOWEST POSITION, CALL LIGHT WITHIN REACH, BED ALARM ON. NURSING WILL CONTINUE TO MONITOR
[2017-10-21] VITALS (7 sets, daily range): BP systolic 138–168; BP diastolic 75–91
--- NOTE | 2017-10-21 01:41 | NUR ---
TOOK PT INTO CARE AT 1930. ASSESSMENT COMPLETED CHARTED. A & O X 4 WITH SOME FORGETFULNESS, UP WITH STANDBY, RIGHT ARM PICC PATIENT, C/O CHRONIC BACK PAIN ALLEVIATED WITH REST, ABLE TO MAKE NEEDS KNOWN, CALL LIGHT WITHIN REACH. WILL CONTINUE WITH PLAN OF CARE.
[2017-10-21] MEDS ORDERED: CARDIZEM CD 18180 M3 PO (16:54)
[2017-10-21] MEDS ORDERED: PEPCID20 MG PO (16:55)
[2017-10-21] MEDS ORDERED: VANCOMYCIN1.5 GM/253 IV (17:11)
[2017-10-21] MEDS ORDERED: TYLENOL325 MG PO (17:12)
[2017-10-21] MEDS ORDERED: FLONASE 0.05%50 MCG NASAL (17:13)
[2017-10-21] MEDS ORDERED: MUCINEX600 MG PO (17:14)
[2017-10-21] MEDS ORDERED: MIRALAX17 GM PO (17:15)
[2017-10-21] MEDS ORDERED: ARTIFICIAL TEAR15 M1 OPHTHALMIC (17:16)
--- NOTE | 2017-10-21 17:50 | NUR ---
RECEIVED REPORT ADN ASSUMED CARE AT 0730. VSS. CARDIAC MONITORING IN PLACE. PT REPORTS HEADACHE. PRN PAIN MEDICATION ADMINISTERED. ASSESSMENT COMPLETED CHARTED. PT ON RA, UP SBA IN ROOM. PT WORKED WITH PHYSICAL THERAPY. INFUSION NURSE COMPLETED TEACHING FOR PT IV ANTIBIOTIC TX AT HOME. HOME HEALTH SET UP BY [facility]. ORDERS FAXED. NURSING SPOKE WITH [facility], VERIFIED ORDERS RECEIVED AND WILL BE TO PT BY 10/22/17 FOR THE MORNING DOSE. DISCUSSED PLAN OF CARE WITH PT. DISCHARGE ORDERS PLACED ON CHART. PAPERWORK COMPLETED BY NURSING. CARDIAC MONITORING DISCONTINED. PICC LINE LEFT FOR HOME ABX TX. DISCUSSED DISCHARGE ORDER WITH PT AND HIS . ALL QUESTIONS AND CONCERNS ADDRESSED AT THIS TIME. PT BELONGINGS COLLECTED AND GIVEN TO PT. TRANSPPORTED BY NURSING IN WHEELCHAIR TO PERSONAL CAR.
--- NOTE | 2017-10-31 15:21 | CON ---
[address] [address] CONSULTATION Name: APARNANIMESH Lara Room: [address] IN .R.#: [id number] Admission: 10/16/17 Attend Phys: Maximo Tijerina Discharge: 10/21/17 Date of : 40 Report #: [id number] THIS REPORT FOR: //name// CC: Ena Bran REASON FOR CONSULTATION: Evaluation and recommendations regarding post-acute rehabilitation. HISTORY OF PRESENT ILLNESS: This is a 77-year-old male admitted with encephalopathy, fever of unknown origin, atrial fibrillation and now known tick bite. He does take Xarelto for his atrial fibrillation and he also recently had an epidural. He does have some alterations in activities of daily living. Previous level of function was independent to modified independent with activities of daily living. He lives in a house with his . He does have a walker and a cane in the home setting. Currently with physical therapy is modified independent, on the however, he was maximum assistance with lower body dressing that has not been reassessed as of late. Occupational therapy is modified independent with most of his activities of daily living verus standby assist with contact guard assist. He does have some mild cognitive deficits. PAST MEDICAL HISTORY: Bronchitis, chest pain, COPD with exacerbation, dyspnea, fever, neck pain, nonspecific ST-T changes, pulmonary edema, respiratory failure. ALLERGIES: No known drug allergies. MEDICATIONS: Reviewed and are available in the MAR. FAMILY HISTORY: Heart disease. SOCIAL HISTORY: No tobacco, alcohol or illicit drug use. REVIEW OF SYSTEMS: A 14-point review of systems is done and is negative except as mentioned in the HPI, specifically no fever, chest pain, shortness of breath, abdominal pain or distention. PHYSICAL EXAMINATION: GENERAL: Alert, oriented, no apparent distress. VITAL SIGNS: Reviewed and are stable. HEENT: Head atraumatic, normocephalic. Pupils equal, round and reactive. ABDOMEN: Soft, nontender, nondistended. NEUROLOGIC: Cranial nerves 2-12 grossly intact. No focal neuro deficits, 5/5 strength in the upper and lower extremities. SKIN: [place] [address] CONSULTATION Name: APARNANIMESH Lara Room: [address] IN [facility].#: [id number] Admission: 10/16/17 Attend Phys: Maximo Tijerina Discharge: 10/21/17 Date of : 40 Report #: [id number] EXTREMITIES: No clubbing, cyanosis or edema. ASSESSMENT: 1. Encephalopathy. 2. Fever of unknown origin with now known tick bite. 3. Mild alterations in activities of daily living. PLAN: Recommend a skilled level of care versus home health for his minor deficits in activities of daily living, mobility, and memory. We will follow during his acute stay and will follow to make sure if he has any more sudden acute changes or deficits that we are documenting them and appropriately making recommendations. <ELECTRONICALLY SIGNED> By: Elaine Duron DO 10/31/17 1521 1210 [id number] Duron DO /nt
== END 2017-10-21 17:50 | disposition home health service (06) | DRG 70 ==
LOC: M.ERS 02:41 → M.ICU 04:23 → M.TBA-ER 04:23 → M.ICU 04:52 → M.2W 10-17 17:38
PROVIDERS: Internal Medicine; Internal Medicine Cardiovascular Disease; Personal Emergency Response Attendant; ADMIT Internal Medicine
PROC: 05HB33Z Insertion of Infusion Device into Right Basilic Vein, Percutaneous Approach (ICD-10-PCS; principal; 2017-10-20)
DX: G93.40 Encephalopathy, unspecified (principal); R65.11 Systemic inflammatory response syndrome (SIRS) of non-infectious origin with acute organ dysfunction; J69.0 Pneumonitis due to inhalation of food and vomit; L03.314 Cellulitis of groin; E78.5 Hyperlipidemia, unspecified; M60.88 Other myositis, other site; I48.2 Chronic atrial fibrillation; G89.29 Other chronic pain; N40.0 Benign prostatic hyperplasia without lower urinary tract symptoms; M54.9 Dorsalgia, unspecified; J44.9 Chronic obstructive pulmonary disease, unspecified; Z87.891 Personal history of nicotine dependence; Z79.01 Long term (current) use of anticoagulants; Z79.899 Other long term (current) drug therapy; Z82.49 Family history of ischemic heart disease and other diseases of the circulatory system

== ENCOUNTER 2020-06-22 10:56 | Emergency (ER) | payer MEDICARE ==
[~2020-06-22] VITALS: Ht 172.7 cm; Wt 108.9 kg
[~2020-06-22 10:56] MED LIST changes: +ARTIFICIAL TEAR15 M1 OPHTHALMIC; +CARDIZEM CD 18180 M3 PO; +FLONASE 0.05%50 MCG NASAL; +MIRALAX17 GM PO; +MUCINEX600 MG PO; +PEPCID20 MG PO; +TYLENOL325 MG PO; +VANCOMYCIN1.5 GM/253 IV
[2020-06-22] MEDS ORDERED: STIOLTO RESPIMAT4 GM INH (11:21)
[2020-06-22] MEDS ORDERED: CELEBREX50 MG PO (11:21)
[2020-06-22] MEDS ORDERED: ACYCLOVIR 200200 MG PO (11:22)
[2020-06-22 12:14] LABS: ABSOLUTE LYMPHOCYTES 1.2 thou/uL (0.8-5.3); ABSOLUTE MONOCYTES 0.7 thou/uL (0.0-1.2); ABSOLUTE NEUTROPHILS 3.4 thou/uL (1.6-8.1); BASOPHILS 0.2 %; EOSINOPHILS 0.7 %; HEMOGLOBIN 15.1 gm/dL (14.0-18.0); LYMPHOCYTES 23.1 %; MCH 32.6 pg (26.0-34.0); MCHC 33.5 g/dL (28.0-37.0); MCV 97.4 fL (80.0-100.0); MONOCYTES 12.5 %; MPV 6.8 fl. (7.2-11.1); NUCLEATED RBCS 0 /100WBC; PLATELET COUNT* 183 thou/uL (150-400); POLYS 63.5 %; RBC 4.63 mil/uL (4.50-6.00); RDW-CV 13.6 % (10.5-14.5); WBC 5.4 thou/uL (4.0-11.0)
[2020-06-22 12:19] LABS: CALCIUM 8.7 mg/dL (8.5-10.1)
[2020-06-22 12:23] LABS: APTT 28.8 Seconds (25.0-31.3); INR 1.1; PROTIME 11.4 Seconds (9.20-11.50)
[2020-06-22 12:33] LABS: INFLUENZA A ANTIGEN Negative (Negative); INFLUENZA B ANTIGEN Negative (Negative)
[2020-06-22 12:38] LABS: TOTAL BILIRUBIN 0.5 mg/dL (<0.1-1.0); TOTAL PROTEIN 6.9 g/dL (6.4-8.2)
[2020-06-22 12:46] LABS: URINE BILIRUBIN NEGATIVE (Negative); URINE BLOOD NEGATIVE (Negative); URINE CLARITY CLEAR; URINE COLOR YELLOW; URINE GLUCOSE-RANDOM NEGATIVE (Negative); URINE KETONES TRACE (Negative); URINE LEUKOCYTES-REFLEX NEGATIVE (Negative); URINE NITRITE-REFLEX NEGATIVE (Negative); URINE PROTEIN NEGATIVE (Negative); URINE UROBILINOGEN 0.2 E.U./dl (0.2-1.0)
[2020-06-22] MEDS ORDERED: MEDROLDOSEPACK PO (13:24)
[2020-06-22] MEDS ORDERED: DOXYCYCLINE 10100 MG PO (13:24)
[2020-06-22 14:59] VITALS: BP 120/63
--- NOTE | 2020-06-22 15:02 | EKG ---
[place] [address] ELECTROCARDIOGRAM REPORT Name: NIMESH BRAUN Room: [facility]#: [id number] Admission: 06/22/20 Attend Phys: Discharge: Date of : 40 Date of Service: 06/22/20 1202 Report #: [id number] THIS REPORT FOR: //name// [facility] ED Test Date: 2020-06-22 Test Time: 12:02:11 Pat Name: NIMESH BRAUN Department: Room: Gender: Cardiac Rehab Nurse: [facility] : 1940 Requested By: Conchita Rios Order Number: [id number] MD: Bart Espinoza Measurements Intervals [place] Rate: 59 P: 10 MT: 358 QRS: -46 QRSD: 131 T: -3 QT: 446 QTc: 442 Interpretive Statements Sinus rhythm poor r wave progression Prolonged MT interval Nonspecific IVCD with LAD Inferior infarct, age indeterminate Compared to ECG 10/17/2017 08:21:11 Intraventricular conduction delay now present Myocardial infarct finding still present Electronically Signed On 06-22-2020 15:02:07 RN INTERN by Bart Espinoza [email or web address] <ELECTRONICALLY SIGNED> By: Bart Espinoza MD, [facility] 06/22/20 1502 1202 1202 Bart Espinoza MD, [facility] /EPI
[2020-06-22] MEDS ORDERED: VENTOLIN HFA 1818 GM INH (15:06)
== END 2020-06-22 15:04 | disposition home or self-care (01) ==
LOC: M.ERS 10:56
PROVIDERS: Nurse Practitioner Family
DX: J18.9 Pneumonia, unspecified organism (principal); R53.1 Weakness; E86.0 Dehydration; I10 Essential (primary) hypertension; J44.9 Chronic obstructive pulmonary disease, unspecified; I48.91 Unspecified atrial fibrillation; Z79.899 Other long term (current) drug therapy; Z87.891 Personal history of nicotine dependence; Z20.828 Contact with and (suspected) exposure to other viral communicable diseases